=== PATIENT | female | born 1975 ===

== ENCOUNTER 2017-07-02 15:19 | Emergency (ER) | payer MEDICAID ==
[2017-07-02 15:19] VITALS: BMI 29.1
[2017-07-02 15:34] VITALS: BP 131/80; PULSE 69; RESP 20; TEMP 99.6; O2SAT 100
--- NOTE | 2017-07-02 16:14 | C.PDOC ---
Time Seen by Provider: 07/02/17 15:53 Chief Complaint (Nursing): ENT Problem Past Medical History Vital Signs: Last Vital Signs Temp 99.6 F 07/02/17 15:33 Pulse 69 07/02/17 15:33 Resp 20 07/02/17 15:33 BP 131/80 07/02/17 15:33 Pulse Ox 100 07/02/17 15:33 - Medical History PMH: Asthma, Depression, Kidney Stones, Chronic Kidney Disease Surgical History: Cholecystectomy (2006) - [facility] Procedures INJECT/INFUSE NEC (11/06/11) Family History: States: Unknown Family Hx - Social History Hx Tobacco Use: No Hx Alcohol Use: Yes (occasional) Hx Substance Use: No - Immunization History Hx Tetanus Toxoid Vaccination: Yes Hx Influenza Vaccination: Yes Hx Pneumococcal Vaccination: Yes (Up to date) ED Course And Treatment O2 Sat by Pulse Oximetry: 100 Disposition - Disposition Forms: [employer] (Khmer)
--- NOTE | 2017-07-02 16:15 | C.PDOC ---
History Of Present Illness 41 year old female presents to the ED c/o sore throat, right earache that started 2 days ago. Patient states she has not taken any medications for the current symptoms. Patient denies fever, chills, cough, taking any medication for the current symptoms. Time Seen by Provider: 07/02/17 15:53 Chief Complaint (Nursing): ENT Problem History Per: Patient History/Exam Limitations: no limitations Onset/Duration Of Symptoms: Days Current Symptoms Are (Timing): Still Present Location Of Pain: Throat Sick Contacts (Context): None Associated Symptoms: Sore Throat Ear Symptoms: Left: None, Right: Ear Pain Recent travel outside of the [place]: No Additional History Per: Patient Past Medical History Reviewed: Historical Data, Nursing Documentation, Vital Signs Vital Signs: Last Vital Signs Temp 99.6 F 07/02/17 15:33 Pulse 69 07/02/17 15:33 Resp 20 07/02/17 15:33 BP 131/80 07/02/17 15:33 Pulse Ox 100 07/02/17 16:33 - Medical History PMH: Asthma, Depression, Kidney Stones, Chronic Kidney Disease Surgical History: Cholecystectomy (2006) - [employer] Procedures INJECT/INFUSE NEC (11/06/11) Family History: States: Unknown Family Hx - Social History Hx Tobacco Use: No Hx Alcohol Use: Yes (occasional) Hx Substance Use: No - Immunization History Hx Tetanus Toxoid Vaccination: Yes Hx Influenza Vaccination: Yes Hx Pneumococcal Vaccination: Yes (Up to date) Review Of Systems Constitutional: Negative for: Fever, Chills ENT: Positive for: Ear Pain, Throat Pain Respiratory: Negative for: Cough, Shortness of Breath Gastrointestinal: Negative for: Nausea, Vomiting, Abdominal Pain Skin: Negative for: Rash Neurological: Negative for: Weakness, Numbness Physical Exam - Physical Exam Appears: Non-toxic, No Acute Distress Skin: Normal Color, Warm, Dry Head: Atraumatic, Normacephalic Eye(s): bilateral: Normal Inspection Ear(s): Bilateral: Normal Nose: No Discharge, No Deformity Oral Mucosa: Moist Tongue: No Swelling Lips: No Swelling Throat: Erythema (tonsillar), Exudate, Other (tonsillar hyperthropy) Neck: Normal ROM, Supple Lymphatic: Adenopathy (B/L cervical tender ) Cardiovascular: Rhythm Regular Respiratory: Normal Breath Sounds Gastrointestinal/Abdominal: Normal Exam, Bowel Sounds Back: Normal Inspection Neurological/Psych: Oriented x3, Normal Speech, Normal Cognition Gait: Steady ED Course And Treatment O2 Sat by Pulse Oximetry: 100 (On RA) Pulse Ox Interpretation: Normal Medical Decision Making Medical Decision Making: Assessment: Pahryngitis Plan: * Motrin 600 mg PO * UA Patient will be D/C home and was advised to follow up with clinic in 1-2 days. Disposition Counseled Patient/Family Regarding: Studies Performed, Diagnosis, Need For Followup, Rx Given - Disposition [facility]errals: [facility] [Outside] Disposition: HOME/ ROUTINE Disposition Time: 16:13 Condition: STABLE Additional Instructions: follow up with your doctor in 2 days call to make an appointment take medications as prescribed return to ER if symptoms worsens or progress Prescriptions: Amoxicillin/Clavulanate [Augmentin 875 MG-125 MG] 1 tab PO BID #20 tab Naproxen [Naprosyn] 500 mg PO BID PRN #12 tab PRN Reason: Pain, Moderate (4-7) Instructions: Sore Throat in Adults Forms: [facility] (German), General Discharge Instructions - Clinical Impression Clinical Impression: Pharyngitis - Scribe Statement The provider has reviewed the documentation as recorded by the Scribe Toni Hernandez All medical record entries made by the Scribe were at my direction and personally dictated by me. I have reviewed the chart and agree that the record accurately reflects my personal performance of the history, physical exam, medical decision making, and the department course for this patient. I have also personally directed, reviewed, and agree with the discharge instructions and disposition.
== END 2017-07-02 16:33 | disposition home or self-care (01) ==
LOC: C.ER 15:19
DX: J02.9 Acute pharyngitis, unspecified (principal)

== ENCOUNTER 2017-11-07 08:56 | Emergency (ER) | payer MEDICAID ==
[2017-11-07 09:07] VITALS: BMI 30.6
[2017-11-07 09:08] VITALS: RESP 18
[2017-11-07] MEDS ORDERED: Sodium Chloride 0.9% 1,000 ML IV ONE (09:40)
[2017-11-07 09:45] LABS: HCG,QUALITATIVE URINE NEGATIVE (NEGATIVE)
[2017-11-07 09:48] LABS: SQUAMOUS EPITHIAL 3 /hpf (0-5); URINE BILIRUBIN NEGATIVE (NEGATIVE); URINE BLOOD 1+ (NEGATIVE); URINE CLARITY Clear (Clear); URINE COLOR Yellow (YELLOW); URINE GLUCOSE (UA) NORMAL (Normal); URINE LEUKOCYTE ESTERASE TRACE Leu/uL (Negative); URINE PROTEIN NEGATIVE (NEGATIVE); URINE UROBILINOGEN NORMAL mg/dL (0.2-1.0)
[2017-11-07] MEDS ORDERED: Sodium Chloride 0.9% 1,000 ML ONE (09:52)
[2017-11-07 10:03] LABS: BASO % 0.6 % (0.0-2.0); EOS # 0.1 K/uL (0.0-0.7); EOS % 1.7 % (0.0-4.0); HEMOGLOBIN 13.1 g/dL (11.0-16.0); LYMPH # 1.9 K/uL (1.0-4.3); MEAN CELL VOLUME 85.3 fL (81.0-99.0); MEAN CORPUSCULAR HEMOGLOBIN 28.8 pg (27.0-31.0); MEAN CORPUSCULAR HGB CONC 33.8 g/dL (33.0-37.0); MEAN PLATELET VOLUME 7.6 fL (7.2-11.7); MONO # 0.6 K/uL (0.0-0.8); MONO % 8.8 % (0.0-10.0); NEUT # 4.4 K/uL (1.8-7.0); NEUT % 61.9 % (50.0-75.0); RBC 4.54 Mil/uL (3.80-5.20); RED CELL DISTRIBUTION WIDTH 13.1 % (11.5-14.5); WHITE BLOOD COUNT 7.2 K/uL (4.8-10.8)
--- NOTE | 2017-11-07 10:10 | C.PDOC ---
History Of Present Illness 41yo female, history of ovarian cysts and kidney stones, comes to ER with complaints of left sided abdominal pain and flank pain. She states the pain has been present for the past 4 days and is associated with vomiting. She also has a secondary complaint stating she injured her left shoulder yesterday. She otherwise denies any fever, chills, dysuria, hematuria, weakness, numbness or tingling. She offers no other medical complaints. Time Seen by Provider: 11/07/17 09:09 Chief Complaint (Nursing): Abdominal Pain History Per: Patient History/Exam Limitations: no limitations Onset/Duration Of Symptoms: Days (4) Current Symptoms Are (Timing): Still Present Location Of Pain/Discomfort: LLQ Quality Of Discomfort: "Pain" Associated Symptoms: Back Pain. denies: Fever, Chills, Nausea, Vomiting, Diarrhea, Loss Of Appetite, Constipation, Urinary Symptoms Additional History Per: Patient Abnormal Vaginal Bleeding: No Past Medical History Reviewed: Historical Data, Nursing Documentation, Vital Signs Vital Signs: Last Vital Signs Temp 98.2 F 11/07/17 11:25 Pulse 61 11/07/17 11:25 Resp 18 11/07/17 11:25 BP 129/84 11/07/17 11:25 Pulse Ox 100 11/07/17 11:25 - Medical History PMH: Asthma, Depression, Kidney Stones, Chronic Kidney Disease Surgical History: Cholecystectomy (2006) - [facility] Procedures INJECT/INFUSE NEC (11/06/11) Family History: States: No Known Family Hx, Unknown Family Hx - Social History Hx Tobacco Use: No Hx Alcohol Use: Yes (occasional) Hx Substance Use: No - Immunization History Hx Tetanus Toxoid Vaccination: Yes Hx Influenza Vaccination: Yes Hx Pneumococcal Vaccination: Yes (Up to date) Review Of Systems Except As Marked, All Systems Reviewed And Found Negative. Constitutional: Negative for: Fever, Chills Cardiovascular: Negative for: Chest Pain Respiratory: Negative for: Shortness of Breath Gastrointestinal: Positive for: Vomiting, Abdominal Pain (LLQ/left flank pain) Genitourinary: Negative for: Dysuria, Frequency, Hematuria Musculoskeletal: Positive for: Shoulder Pain (left) Neurological: Negative for: Weakness, Numbness Physical Exam - Physical Exam Appears: Non-toxic, No Acute Distress Skin: Warm, Dry, Ecchymosis (small ecchymosis to left shoulder) Head: Atraumatic, Normacephalic Eye(s): bilateral: Normal Inspection Neck: Normal ROM, Supple Chest: Symmetrical Cardiovascular: Rhythm Regular Respiratory: Normal Breath Sounds Gastrointestinal/Abdominal: Soft, Tenderness (left lower quadrant, mild), No Mass, No Guarding, No Rebound Back: Normal Inspection, Other (left flank tenderness) Extremity: Normal ROM Neurological/Psych: Oriented x3 ED Course And Treatment - Laboratory Results Result Diagrams: 11/07/17 09:50 11/07/17 09:50 Lab Interpretation: Normal Urine POC: Negative O2 Sat by Pulse Oximetry: 99 (RA) Pulse Ox Interpretation: Normal - CT Scan/US No standard instances Other Rad Studies (CT/US): Read By Radiologist CT/US Interpretation: FINDINGS: LOWER THORAX: Unremarkable. LIVER: Unremarkable. No gross lesion or ductal dilatation. GALLBLADDER AND BILE DUCTS : Status post cholecystectomy. PANCREAS: Unremarkable. No gross lesion or ductal dilatation. SPLEEN: Unremarkable. ADRENALS: Unremarkable. No mass. KIDNEYS AND URETERS: Unremarkable. No hydronephrosis. No solid mass. VASCULATURE: Unremarkable. No aortic aneurysm. BOWEL: Unremarkable. No obstruction. No gross mural thickening. APPENDIX: Unremarkable. Normal appendix. PERITONEUM: Unremarkable. No free fluid. No free air. LYMPH NODES: Unremarkable. No enlarged lymph nodes. BLADDER: Unremarkable. REPRODUCTIVE : Normal uterus. BONES: No acute fracture. OTHER FINDINGS: None. IMPRESSION: Unremarkable non contrast enhanced CT of the abdomen and pelvis. Progress Note: Labs, urinalysis, upreg ordered. CT Abdomen/Pelvis w/o contrast ordered. Patient given IV fluids as well. On re-evaluation abdomen soft non- tender Reassessment Condition: Improved Disposition Counseled Patient/Family Regarding: Studies Performed, Diagnosis, Need For Followup, Rx Given - Disposition Referrals: Ashley Issa MD [Staff Provider] - Disposition: HOME/ ROUTINE Disposition Time: 11:15 Condition: STABLE Additional Instructions: Return to ED if any increase symptoms Prescriptions: Ibuprofen [Motrin Tab] 400 mg PO TID PRN #12 tab PRN Reason: Pain Instructions: Acute Abdomen (Belly Pain), Adult (DC) Forms: [facility] (Libyan) - POA Present On Arrival: None - Clinical Impression Clinical Impression: Vomiting, Abdominal pain - Scribe Statement The provider has reviewed the documentation as recorded by the Sonido Lopez Provider Attestation: All medical record entries made by the Gilesibe were at my direction and personally dictated by me. I have reviewed the chart and agree that the record accurately reflects my personal performance of the history, physical exam, medical decision making, and the department course for this patient. I have also personally directed, reviewed, and agree with the discharge instructions and disposition.
[2017-11-07 10:17] LABS: ALB/GLOB RATIO 1.4 (1.0-2.1); ALT/SGPT 25 U/L (9-52); AST/SGOT 16 U/L (14-36); BLOOD UREA NITROGEN 13 mg/dL (7-17); CALCIUM 9.1 mg/dl (8.6-10.4); GFR AFRICAN-AMERICAN > 60; GFR NON-AFRICAN AMERICAN > 60; LIPASE 128 U/L (23-300)
--- NOTE | 2017-11-07 10:54 | CT ---
Date of service: At 11/07/2017 PROCEDURE: CT Abdomen and Pelvis without intravenous contrast HISTORY: Pain COMPARISON: 07/12/2015 TECHNIQUE: Without contrast.. Contrast dose: 0 Radiation dose: Total exam DLP = 815.39 mGy-cm. This CT exam was performed using one or more of the following dose reduction techniques: Automated exposure control, adjustment of the mA and/or kV according to patient size, and/or use of iterative reconstruction technique. FINDINGS: LOWER THORAX: Unremarkable. LIVER: Unremarkable. No gross lesion or ductal dilatation. GALLBLADDER AND BILE DUCTS: Status post cholecystectomy PANCREAS: Unremarkable. No gross lesion or ductal dilatation. SPLEEN: Unremarkable. ADRENALS: Unremarkable. No mass. KIDNEYS AND URETERS: Unremarkable. No hydronephrosis. No solid mass. VASCULATURE: Unremarkable. No aortic aneurysm. BOWEL: Unremarkable. No obstruction. No gross mural thickening. APPENDIX: Unremarkable. Normal appendix. PERITONEUM: Unremarkable. No free fluid. No free air. LYMPH NODES: Unremarkable. No enlarged lymph nodes. BLADDER: Unremarkable. REPRODUCTIVE: Normal uterus BONES: No acute fracture. OTHER FINDINGS: None. IMPRESSION: Unremarkable non contrast enhanced CT of the abdomen and pelvis.
[2017-11-07 11:39] VITALS: BP 129/84; PULSE 61; TEMP 98.2
[2017-11-07 18:35] VITALS: O2SAT 99
== END 2017-11-07 11:46 | disposition home or self-care (01) ==
LOC: C.ER 08:56
DX: R10.32 Left lower quadrant pain (principal); R11.10 Vomiting, unspecified
CPT/HCPCS: 74176; 80053; 81001; 83690; 84703; 85025; 96360; 99285; J7030

== ENCOUNTER 2018-06-26 13:19 | Emergency (ER) | payer MEDICAID ==
[2018-06-26 13:19] VITALS: BMI 30.6
[2018-06-26 13:28] VITALS: TEMP 98.7
--- NOTE | 2018-06-26 14:30 | C.PDOC ---
History Of Present Illness 42 y/o female presents to the ED with 2 weeks of sinus headache and nasal congestion. Now patient also has a sore throat radiating to the bilateral ears. Otherwise she denies any fever, chills, vomiting, diarrhea, or cough. No recent travel. Patient has not tried any OTC medication for symptom relief. Time Seen by Provider: 06/26/18 13:34 Chief Complaint (Nursing): Cough, Cold, Congestion History Per: Patient History/Exam Limitations: no limitations Onset/Duration Of Symptoms: Days Current Symptoms Are (Timing): Still Present Location Of Pain: Throat, Headache Associated Symptoms: Sinus Drainage, Nasal Congestion Past Medical History Reviewed: Historical Data, Nursing Documentation, Vital Signs Vital Signs: Last Vital Signs Temp 98.7 F 06/26/18 13:26 Pulse 90 06/26/18 13:26 Resp 16 06/26/18 13:26 BP 138/84 06/26/18 13:26 Pulse Ox 97 06/26/18 13:26 - Medical History PMH: Asthma, Depression, Kidney Stones, Chronic Kidney Disease Surgical History: Cholecystectomy (2006) - [facility] Procedures INJECT/INFUSE NEC (11/06/11) Family History: States: Unknown Family Hx - Social History Hx Tobacco Use: No Hx Alcohol Use: Yes (occasional) Hx Substance Use: No - Immunization History Hx Tetanus Toxoid Vaccination: Yes Hx Influenza Vaccination: Yes Hx Pneumococcal Vaccination: Yes (Up to date) Review Of Systems Constitutional: Negative for: Fever ENT: Positive for: Ear Pain, Nose Discharge (+ sinus congestion), Throat Pain Cardiovascular: Negative for: Chest Pain Respiratory: Negative for: Cough, Shortness of Breath Gastrointestinal: Negative for: Vomiting, Abdominal Pain, Diarrhea Skin: Negative for: Rash Neurological: Positive for: Headache. Negative for: Weakness, Dizziness Physical Exam - Physical Exam Appears: Non-toxic, No Acute Distress Skin: Warm, Dry, No Rash Head: Atraumatic, Normacephalic, Tenderness (+ frontal sinus tenderness) Eye(s): bilateral: Normal Inspection, PERRL, EOMI Oral Mucosa: Moist Throat: Erythema (Bilateral tonsillar erythema and swelling), Exudate Neck: Normal ROM, Supple Chest: Symmetrical Cardiovascular: Rhythm Regular, No Murmur Respiratory: Normal Breath Sounds, No Rales, No Rhonchi, No Wheezing Extremity: Bilateral: Atraumatic, Normal ROM Neurological/Psych: Oriented x3, Normal Speech, Normal Cranial Nerves, Other (No focal deficit) ED Course And Treatment O2 Sat by Pulse Oximetry: 97 (RA) Pulse Ox Interpretation: Normal Medical Decision Making Medical Decision Making: Impression: Sinusitis, Tonsillitis Plan: - 600 mg PO Motrin - 30 mg PO Sudafed - 500 mg PO Amoxicillin Patient will be discharged home with antibiotics. Advised to follow up with PMD within 2 days. Disposition - Disposition Referrals: Arias Dye MD [Staff Provider] - Disposition: HOME/ ROUTINE Disposition Time: 14:35 Condition: STABLE Additional Instructions: follow up with your doctor within 2 days call to make an appointment take medication as prescribed return to hospital if symptoms worsens or progress Prescriptions: Amoxicillin 875 mg PO BID #20 tablet Naproxen [Naprosyn] 500 mg PO BID PRN #16 tab PRN Reason: Pain, Moderate (4-7) Pseudoephedrine HCl [Sudafed] 30 mg PO TID PRN #15 tablet PRN Reason: Cough And Congestion Instructions: Sinusitis in Adults, Sore Throat, Adult (DC) Forms: [facility] (Faroese), General Discharge Instructions, Work Excuse - Clinical Impression Clinical Impression: Sinusitis, Pharyngitis - Scribe Statement The provider has reviewed the documentation as recorded by the Sonido Parry Provider Attestation: All medical record entries made by the Sonido were at my direction and personally dictated by me. I have reviewed the chart and agree that the record accurately reflects my personal performance of the history, physical exam, medical decision making, and the department course for this patient. I have also personally directed, reviewed, and agree with the discharge instructions and disposition.
[2018-06-26 14:51] VITALS: BP 130/82; PULSE 68; RESP 20; O2SAT 98
== END 2018-06-26 14:56 | disposition home or self-care (01) ==
LOC: C.ER 13:19
DX: J32.9 Chronic sinusitis, unspecified (principal); J02.9 Acute pharyngitis, unspecified